=== PATIENT | female | born 1995 | race Caucasian/White ===

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

== ENCOUNTER → 2018-05-26 | Outpatient (CLI) | payer OTHER ==
[~2018-05-26] MED LIST changes: -SULF1TAB23 PO; +SULF1TAB93 PO; -ZYVO100T PO; +ZYVO1TAB PO
--- NOTE | 2018-05-27 06:29 | REP ---
Clinical: Dating and viability. Technique: Transabdominal first trimester obstetrical ultrasound with color Doppler evaluation. Findings: Single live early intrauterine is appreciated. Gestational sac with yolk sac and pole identified. [place]-rump length of 14 mm corresponds to 7 weeks 5 days gestational age with estimated date of delivery 01/07/2019 . heart rate equals 153 beats per minute. No gross abnormalities are identified. Impression: Single live early intrauterine at 7 weeks 5 days gestational age. Complete anatomical assessment should be performed and 19-20 weeks. Electronically Signed by Hemanth Phelan MD 05/27/2018 06:20 A
== END ==
LOC: M RAD 14:37
PROVIDERS: ATTEND Nurse Practitioner Family
DX: Z36.89 Encounter for other specified antenatal screening (principal); Z3A.01 Less than 8 weeks gestation of pregnancy

== ENCOUNTER 2018-07-14 10:19 | Day surgery (SDC) | payer OTHER ==
[~2018-07-14] VITALS: Ht 160 cm; Wt 108.6 kg
[~2018-07-14 10:19] MED LIST changes: +NORC1TAB7 PO; +XULA1DIS
[2018-07-14 11:02] LABS: URINE PREG TEST NEGATIVE (NEGATIVE)
[2018-07-14] MEDS ORDERED: LR 1,000 ML IV ONE (11:15)
[2018-07-14] MEDS ORDERED: fentaNYL 100 MCG/2 ML INJECTION (J3010) As Ordered ONE ×3 (11:32→14:53)
[2018-07-14] MEDS ORDERED: PROPOFOL 200 MG/20 ML VIAL As Ordered ONE (11:32)
[2018-07-14] MEDS ORDERED: ONDANSETRON 4MG/2ML VIAL (J2405) As Ordered ONE (11:32)
[2018-07-14] MEDS ORDERED: ROCURONIUM BROMIDE 50 MG/5 ML VIAL As Ordered ONE (11:32)
[2018-07-14] MEDS ORDERED: dexameTHASONE 4 MG/ML 1ML VIAL (J1100) As Ordered ONE (11:32)
[2018-07-14] MEDS ORDERED: LIDOCAINE 2% INJ 100 MG/5 ML SDV (FOR ANES.) As Ordered ONE (11:32)
[2018-07-14] MEDS ORDERED: MIDAZOLAM INJ 2 MG/2 ML VIAL (J2250) As Ordered ONE (11:33)
[2018-07-14] MEDS ORDERED: LIDOCAINE W/EPINEPHRINE 1% 20ML VIAL As Ordered ONE (13:48)
[2018-07-14] MEDS ORDERED: METHYLENE BLUE 0.5% (5MG/ML) 10 ML AMP (PROVAYBLUE)(Q9968 PER 1MG) As Ordered ONE (13:48)
[2018-07-14] MEDS ORDERED: EPINEPHrine 1MG/10ML SYRINGE 1.5IN As Ordered ONE (13:48)
[2018-07-14] MEDS ORDERED: EPINEPHrine INJ 1 MG/ML 1ML AMP As Ordered ONE (13:49)
[2018-07-14] MEDS ORDERED: EPINEPHrine 1MG/ML INJ 30ML MD-VIAL As Ordered ONE (13:51)
[2018-07-14] MEDS ORDERED: ACETAMINOPHEN 1000MG 100ML IV BTL (OFIRMEV) (J0131 PER 10MG) As Ordered ONE (14:15)
[2018-07-14] MEDS: fentaNYL 100 MCG/2 ML INJECTION (J3010) IV PRN ×4 (14:55→15:10)
[2018-07-14] MEDS ORDERED: ONDANSETRON 4MG/2ML VIAL (J2405) IV PRN (15:00)
[2018-07-14] MEDS ORDERED: LR 1,000 ML IV SCH ×2 (15:00)
[2018-07-14 15:30] VITALS: BP 132/88
--- NOTE | 2018-07-19 21:07 | RO ---
DATE OF PROCEDURE: 07/14/2018 PREPROCEDURE DIAGNOSIS: Acquired nasal deformity. POSTPROCEDURE DIAGNOSIS: Acquired nasal deformity. PROCEDURE: Closed nasal fracture reduction. SURGEON: True Lal MD REVENUE OFFICER: ANESTHESIA: General. CLINICAL PREAMBLE: This 23-year-old woman slipped and fell in the shower. Her nose hit the faucet handles. 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 Management options including surgery listed above have been discussed. The patient understood and consented to the procedure. DESCRIPTION OF PROCEDURE: The patient was identified in preop holding and brought to the operating room in stable condition. In supine position on the operating table, the patient received general anesthesia followed by orotracheal intubation without incident. The patient was prepped and draped in the usual fashion for the procedure. Both sides of the nasal cavity were packed using pledgets soaked in 1:1000 epinephrine. After a waiting period, the pledgets were removed. Using the Boies elevator, the nasal septum was then placed in the midline position. Using the Asch forceps, the nasal pyramid was placed into a midline position. The [place] splint was then applied. At the end of the procedure, sponge and instrument counts were correct. No complication was encountered. Estimated blood loss was less than 10 mL. General anesthesia was reversed, and the patient was extubated and brought to the recovery room in stable condition. DILCIA
== END 2018-07-14 16:08 | disposition home or self-care (01) ==
LOC: M SDC 10:19
PROVIDERS: ATTEND Otolaryngology
DX: S02.2XXA Fracture of nasal bones, initial encounter for closed fracture (principal); W18.2XXA Fall in (into) shower or empty bathtub, initial encounter; Y92.002 Bathroom of unspecified non-institutional (private) residence as the place of occurrence of the external cause; Y93.E1 Activity, personal bathing and showering; Y99.9 Unspecified external cause status; E66.01 Morbid (severe) obesity due to excess calories; Z79.899 Other long term (current) drug therapy
CPT/HCPCS: 21320; 84703; J0131; J1100; J2250; J2405; J3010; Q9968

== ENCOUNTER → 2022-04-23 | Outpatient (REF) | payer OTHER ==
[~2022-04-23] MED LIST changes: +BACTDSTA PO; -SULF1TAB93 PO
== END ==
LOC: M LAB REF 21:52
PROVIDERS: ATTEND Physician Assistant Medical
DX: B34.9 Viral infection, unspecified (principal)